=== PATIENT | female | born 1990 | race African-American/Black ===

== ENCOUNTER 2016-07-21 11:29 | Emergency (ER) | payer SELFPAY ==
[~2016-07-21] VITALS: Ht 165.1 cm; Wt 108.0 kg
[~2016-07-21 11:29] MED LIST: NAPR500 PO
[2016-07-21 11:31] VITALS: BP 111/66; PULSE 80; RESP 15; TEMP 98.1; O2SAT 98
--- NOTE | 2016-07-21 13:50 | PD ---
HPI Chief Complaint: Cold / Flu Symptoms Time Seen by Provider: 13:40 Travel History International Travel<30 days: No Contact w/Intl Traveler<30days: No Traveled to known affect area: No History of Present Illness HPI This is a 26-year-old female presents for evaluation of cough and congestion and nausea and dizziness. Symptoms started 2 days ago. The cough is productive with sputum. She has had no fevers or chills or myalgias. She has had no sore throat, abdominal pain, vomiting, dysuria, flank pain. Last menstrual period. Was a few days ago. Denies any sick contacts. She also notes some pruritus to the upper back and she is concerned because she recently slept at her friend's house and she believes that maybe her friend has bedbugs at her house. The itchiness is localized to the upper back. No other complaints. PFSH Past Medical History Asthma: Yes Diminished Hearing: No Immunizations Current: Yes ?: Not Past Surgical History Oral Surgery: Yes (WISDOM TEETH) Tonsillectomy: Yes Social History Alcohol Use: No (1/week) Tobacco Use: Yes (1/week) Substance Use: No Allergies-Medications (Allergen,Severity, Reaction): Coded Allergies: No Known Allergies (Verified , 07/21/16) Reported Meds & Prescriptions Reported Meds & Active Scripts Active Zofran (Ondansetron HCl) 4 Mg Tab 4 Mg PO Q6HR PRN Naprosyn (Naproxen) 500 Mg Tab 500 Mg PO BID PRN Review of Systems Except as stated in HPI: all other systems reviewed are Neg Physical Exam Narrative GENERAL: Well-developed well-nourished female in no acute distress. Ambulatory in the ED. SKIN: Warm and dry. No obvious rash. HEAD: Atraumatic. Normocephalic. EYES: Pupils equal and round. No scleral icterus. No injection or drainage. ENT: No nasal bleeding or discharge. Mucous membranes pink and moist. No oral pharyngeal erythema or exudate. NECK: Trachea midline. No JVD. No lymphadenopathy. Neck supple full range of motion. CARDIOVASCULAR: Regular rate and rhythm. No murmur appreciated. RESPIRATORY: No accessory muscle use. Clear to auscultation. Breath sounds equal bilaterally. No crackles no wheezing or rhonchi GASTROINTESTINAL: Abdomen soft, non-tender, nondistended. Hepatic and splenic margins not palpable. MUSCULOSKELETAL: No obvious deformities. No edema. NEUROLOGICAL: Awake and alert. No obvious cranial nerve deficits. Motor grossly within normal limits. Normal speech. PSYCHIATRIC: Appropriate mood and affect; insight and judgment normal. Data Data Last Documented VS Vital Signs Date Time Temp Pulse Resp B/P Pulse Ox O2 Delivery O2 Flow Rate FiO2 07/21/16 14:04 78 20 98 Room Air 07/21/16 11:31 98.1 111/66 Orders Influenzae A/B Antigen (07/21/16 13:46) Ondansetron Odt (Zofran Odt) (07/21/16 14:00) Oral Rehydration (07/21/16 13:46) MDM Medical Decision Making Medical Screen Exam Complete: Yes Emergency Medical Condition: Yes Medical Record Reviewed: Yes Differential Diagnosis Viral syndrome, influenza, rhinitis, sinusitis, seasonal allergies, bedbugs, pneumonia Narrative Course 26-year-old female who has had 2 days of cough, congestion, dizziness and nausea as well as some pruritus to her upper back ever since sleeping at a friend's house. Examination reveals no rash. She is well-appearing and I feel that she has a viral upper respiratory infection. Her lungs sound clear. She is afebrile, not tachycardic. Her abdomen is soft and nontender. Plan is for Influenza antigen, Zofran and oral rehydration. She'll be reassessed. Influenza is negative. She feels improved after the administration of Zofran. She will be discharged with a prescription for Zofran as well as a note for work. Diagnosis Primary Impression: Upper respiratory infection Qualified Code: J06.9 - Upper respiratory tract infection, unspecified type Departure Forms: Tests/Procedures, Work Release Enter return to work date: Jul 24, 2016 Additional Instructions: Stay well hydrated well-nourished. Zofran for nausea. Follow-up with primary care physician as needed and return for any new or worsening symptoms. Med/Other Pt SpecificInfo: Prescription(s) given Scripts Ondansetron (Zofran)4 Mg Tab4 Mg PO Q6HR PRN (NAUSEA OR VOMITING) #15 TAB Ref 0 Prov:Ida Mcmanus MD 07/21/16 Disposition: 01 DISCHARGE HOME Condition: Stable Jesus Gonzalez Jul 21, 2016 13:50
[2016-07-21] MEDS ORDERED: ZOFR4TAB PO (13:51)
[2016-07-21] MEDS ORDERED: ONDANSETRON ODT 4 MG TAB PO ONE (14:00)
--- NOTE | 2016-07-21 15:08 | PD ---
Data Data Last Documented VS Vital Signs Date Time Temp Pulse Resp B/P Pulse Ox O2 Delivery O2 Flow Rate FiO2 07/21/16 14:04 78 20 98 Room Air 07/21/16 11:31 98.1 111/66 Orders Influenzae A/B Antigen (07/21/16 13:46) Ondansetron Odt (Zofran Odt) (07/21/16 14:00) Oral Rehydration (07/21/16 13:46) MDM Supervised Visit with MELANIE: Yes Narrative Course The history, exam, and medical decision-making in the associated midlevel provider note were completed with my assistance. I reviewed and agree with the findings presented. I attest that I had a [id number] encounter with the patient on the same day, and personally performed and documented my assessment and findings in the medical record. *My assessment and Findings: This is a 26-year-old female who presents to the emergency department with cold and flu symptoms. She has normal vital signs. She is quite well-appearing on exam. Influenza test was negative. She was discharged home with symptomatic management. Diagnosis Primary Impression: Upper respiratory infection Qualified Code: J06.9 - Upper respiratory tract infection, unspecified type Departure Forms: Work Release, Enter return to work date: Tests/Procedures Additional Instruction: Stay well hydrated well-nourished. Zofran for nausea. Follow-up with primary care physician as needed and return for any new or worsening symptoms. Scripts Ondansetron (Zofran)4 Mg Tab4 Mg PO Q6HR PRN (NAUSEA OR VOMITING) #15 TAB Ref 0 Prov:Ida Mcmanus MD 07/21/16 Disposition: 01 DISCHARGE HOME Condition: Stable Ida Mcmanus MD Jul 21, 2016 15:08
[2016-07-21 15:48] VITALS: BP 118/70
== END 2016-07-21 15:49 | disposition home or self-care (01) ==
LOC: NEPB 11:29
DX: J06.9 Acute upper respiratory infection, unspecified (principal); F17.210 Nicotine dependence, cigarettes, uncomplicated
CPT/HCPCS: 87804; 99284